=== PATIENT | female | born 1995 | race Caucasian/White ===

== ENCOUNTER 2021-12-06 12:04 | Emergency (ER) | payer OTHER ==
[~2021-12-06] VITALS: Ht 160 cm; Wt 85.3 kg
[2021-12-06 12:08] VITALS: BP 118/71
--- NOTE | 2021-12-06 12:08 | NUR ---
PT BIBA AND TAKEN TO BED 12
--- NOTE | 2021-12-06 12:13 | NUR ---
CALIN TIJERINA BEDSIDE EVAULATING PT
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
[2021-12-06] MEDS ORDERED: HYDROcodone/APAP 5/325 MG 1 TAB TAB PO ONE (12:20)
[2021-12-06] MEDS ORDERED: IBUPROFEN 600 MG TAB PO ONE (12:20)
--- NOTE | 2021-12-06 12:35 | NUR ---
PT PROVIDED WITH URINE CUP
--- NOTE | 2021-12-06 13:03 | NUR ---
PT TAKEN TO XRAY VIA GOLD
[2021-12-06] MEDS ORDERED: IBUP-2213 PO (14:00)
[2021-12-06 14:14] VITALS: BP 115/60
== END 2021-12-06 14:14 | disposition home or self-care (01) ==
LOC: MED 12:04
DX: S70.02XA Contusion of left hip, initial encounter (principal); Z79.899 Other long term (current) drug therapy; V03.99XA Pedestrian with other conveyance injured in collision with car, pick-up truck or van, unspecified whether traffic or nontraffic accident, initial encounter; Y93.01 Activity, walking, marching and hiking; Y92.481 Parking lot as the place of occurrence of the external cause; Y99.8 Other external cause status
CPT/HCPCS: 72170; 73502; 73630; 81025; 99284